=== PATIENT | male | born 1985 | race African-American/Black ===

== ENCOUNTER 2016-10-05 23:34 | Emergency (ER) | payer OTHER ==
[~2016-10-05] VITALS: Ht 180.3 cm; Wt 75.0 kg
[2016-10-05 23:43] VITALS: BP 134/77; PULSE 84; RESP 18; TEMP 98.6; O2SAT 100
[2016-10-05] MEDS ORDERED: MORPHINE SULFATE 4 MG/ML INJ IV ONE (23:45)
[2016-10-05] MEDS ORDERED: ONDANSETRON HCL 4 MG/2 ML VIAL IVP ONE (23:45)
[2016-10-05] MEDS ORDERED: ceFAZolin INJ 1,000 MG in ceFAZolin 2 GM PREMIX 50 ML IV ONE (23:45)
[2016-10-05] MEDS ORDERED: SODIUM CHLOR 0.9% 1000 ML INJ 1,000 ML IV SCH (23:45)
[2016-10-05] MEDS ORDERED: SODIUM CHLORIDE 0.9% FLUSH 5 ML FLUSH IVF PRN (23:45)
[2016-10-06] VITALS (9 sets, daily range): BP systolic 106–154; BP diastolic 57–73; PULSE 54–97; RESP 12–20; TEMP 98.3; O2SAT 96–99
[2016-10-06 00:36] LABS: AUTOMATED NEUTROPHIL # 6.1 TH/MM3 (1.8-7.7); BASOPHIL % 0.1 % (0.0-2.0); EOSINOPHIL % 0.1 % (0.0-4.0); HEMATOCRIT 37.8 % (39.0-51.0); HEMO FLAGS DIFF FINAL; LYMPH % 12.9 % (9.0-44.0); MEAN CELL VOLUME 90.6 FL (80.0-100.0); MEAN CORPUSCULAR HEMOGLOBIN 30.7 PG (27.0-34.0); MEAN CORPUSCULAR HGB CONC 33.9 % (32.0-36.0); MONO % 6.2 % (0.0-8.0); NEUT % 80.7 % (16.0-70.0); PLATELET COUNT 137 TH/MM3 (150-450); RED BLOOD COUNT 4.17 MIL/MM3 (4.50-5.90); RED CELL DISTRIBUTION WIDTH 12.4 % (11.6-17.2); WHITE BLOOD COUNT 7.6 TH/MM3 (4.0-11.0)
[2016-10-06 00:41] LABS: ANION GAP 8 MEQ/L (5-15); BICARBONATE 26.6 MEQ/L (21.0-32.0); BLOOD UREA NITROGEN 15 MG/DL (7-18); CHLORIDE 102 MEQ/L (98-107); GLOMERULAR FILTRATION RATE 90 ML/MIN (>89); POTASSIUM 3.6 MEQ/L (3.5-5.1); SODIUM (NA) 137 MEQ/L (136-145)
[2016-10-06 00:50] LABS: APTT (PATIENT) 26.8 SEC (24.3-30.1); INTERNATIONAL NORMALIZED RATIO 1.1 RATIO; PROTHROMBIN TIME - PATIENT 11.9 SEC (9.8-11.6)
[2016-10-06] MEDS ORDERED: IOHEXOL 350 MG/ML 10 ML VIAL (for RAD DIAG) IV ONE (00:51)
[2016-10-06] MEDS ORDERED: LIDOCAINE HCL 1% 50 ML VIAL INFIL ONE (01:00)
[2016-10-06] MEDS ORDERED: ceFAZolin 1,000 MG/NS 100 ML IV ONE ×2 (01:30)
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
== END 2016-10-06 18:59 | disposition home or self-care (01) ==
LOC: NEPE 23:34 → NEPJ 10-06 18:59
DX: F43.20 Adjustment disorder, unspecified (principal); M79.671 Pain in right foot; R51 Headache; Z72.0 Tobacco use; V49.88XA Car occupant (driver) (passenger) injured in other specified transport accidents, initial encounter
CPT/HCPCS: 70450; 71010; 71260; 72125; 72131; 72170; 73130; 73630; 74177; 80048; 80320; 85025; 85610; 85730; 86850; 86900; 86901; 96361; 96374; 96375; 99284; J0690; J2270; J2405; J7030; Q9967